=== PATIENT | male | born 1985 | race Caucasian/White ===

== ENCOUNTER 2024-04-04 23:58 | Emergency (ER) | payer BC ==
[~2024-04-04] VITALS: Ht 177.8 cm; Wt 156.5 kg
[~2024-04-04 23:58] MED LIST: BACTRIM DS 8001 TA1 PO; CIPROFLOXACIN500 MG PO; CYCLOBENZAPRINE10 MG PO; FLOMAX0.4 MG PO; HYDROCODONE BIT1 T11 PO; KEFLEX500 MG PO; MEDROL DOSEPAK4 MG PO; MOTRIN800 MG PO; MULTI VITAMINS1 TAB PO; NAPROSYN500 MG PO; TOBREX OPHTH S2.5 ML OPH; TRAMADOL HCL50 MG PO; VICO10300 PO; ZOFRAN ODT4 MG SL; Zofran4 MG PO
[2024-04-05] MEDS ORDERED: HYDROmorphONE Hydrochloride 1 MG/ML SYR IV ONE (01:25)
[2024-04-05] MEDS ORDERED: Ondansetron Hydrochloride 4 MG/2 ML VIAL IV ONE (01:25)
[2024-04-05 01:34] LABS: BASO % 0.4 % (0.0-1.0); EOS # 0.2 10*3/uL (0.0-0.4); HEMATOCRIT 43.6 % (42.0-52.0); LYMPH # 1.8 10*3/uL (1.3-4.4); LYMPH % 26.3 % (27.0-41.0); MEAN CELL VOLUME 92.4 fl (80.0-94.0); MEAN CORPUSCULAR HGB 30.3 pg (27.0-31.0); MEAN CORPUSCULAR HGB CONC 32.8 g/dl (33.0-37.0); MEAN PLATELET VOLUME 9.9 fl (9.6-12.3); MONO # 0.6 10*3/uL (0.1-1.0); MONO % 8.7 % (3.0-9.0); NEUT # 4.2 10*3/uL (2.3-7.9); NEUT % 61.3 % (47.0-73.0); PLATELET COUNT AUTOMATED 199 10*3/uL (130-400); RED BLOOD COUNT 4.72 10*6/uL (4.50-5.90); RED CELL DISTRI WIDTH 12.3 % (0-14.5); WHITE BLOOD COUNT 6.8 10*3/uL (4.8-10.8)
[2024-04-05 01:42] LABS: BILIRUBIN Negative (Negative); BLOOD Negative (Negative); CLARITY Clear (Clear); COLOR Yellow (Yellow); GLUCOSE Negative (Negative); KETONE Trace (Negative); LEUKO ESTERASE Negative (Negative); NITRITE Negative (Negative)
[2024-04-05 01:53] LABS: BUN 11 mg/dl (9-23); CHLORIDE 107 mmol/L (98-107); POTASSIUM 4.1 mmol/L (3.4-5.1)
[2024-04-05 02:01] LABS: BACTERIA TRACE; RBC 0-2 rbc/hpf (0-2); WBC 0-2 wbc/hpf (0-5)
[2024-04-05] MEDS ORDERED: Tamsulosin Hydrochloride 0.4 MG CAP PO ONE (03:50)
[2024-04-05] MEDS ORDERED: Ketorolac Tromethamine 30 MG/ML VIAL IV ONE (03:50)
[2024-04-05] MEDS ORDERED: PERCOCET 5-3251 EACH PO (04:23)
== END 2024-04-05 04:34 | disposition home or self-care (01) ==
LOC: ED 23:58
PROVIDERS: Emergency Medicine
DX: N13.2 Hydronephrosis with renal and ureteral calculous obstruction (principal)